=== PATIENT | male | born 1940 | race Caucasian/White ===

== ENCOUNTER 2021-07-21 16:42 | Inpatient (IN) | payer MEDICARE, OTHER ==
[~2021-07-21] VITALS: Ht 182.9 cm; Wt 81.6 kg
--- NOTE | 2021-07-21 17:12 | NUR ---
PT BIB FROM [facility] PRIOR TO GPS ADMISSION DUE TO AGITATION/AGGRESSIVENESS. PT A/OX2 WITH SOME CONFUSION. AT PT'S BEDSIDE. SAFETY MEASURES IN PLACE. PT COMPLIANT WITH CARE AT THIS TIME. CONNECTED PT TO POX AND MONITOR.
[2021-07-21 17:43] LABS: BASOPHILS % (AUTO) 0.4 % (0.0-2.0); EOSINOPHILS % (AUTO) 1.6 % (0.0-6.0); HEMATOCRIT 41 % (39-51); HEMOGLOBIN 13.6 g/dL (13.5-17.5); LYMPHOCYTES # (AUTO) 2.1 K/uL (0.8-4.8); MEAN CORPUSCULAR HGB CONC 33 g/dl (31.0-36.0); MEAN CORPUSCULAR VOLUME 94 fL (80-96); MONOCYTES # (AUTO) 0.9 K/uL (0.1-1.30); MONOCYTES % (AUTO) 8.7 % (2.0-12.0); NEUTROPHILS # (AUTO) 7.2 K/uL (1.8-8.9); NEUTROPHILS % (AUTO) 69.3 % (43.0-81.0); PLATELET COUNT (AUTO) 166 K/uL (150-450); RED BLOOD CELL COUNT(AUTO) 4.42 MIL/uL (4.5-6.0); WHITE BLOOD COUNT (AUTO) 10.4 K/uL (4.3-11.0)
[2021-07-21 18:03] LABS: ALANINE AMINOTRANSFERASE 41 U/L (12-78); ALBUMIN 4.3 g/dL (3.4-5.0); ALCOHOL, BLOOD < 3 mg/dL (0-0); ALKALINE PHOSPHATASE 85 U/L (46-116); ASPARTATE AMINOTRANSFERASE 30 U/L (15-37); BILIRUBIN,DIRECT 0.2 mg/dL (0.0-0.2); BILIRUBIN,TOTAL 0.6 mg/dL (0.2-1.0); CALCIUM, SERUM 9.4 mg/dL (8.5-10.1); CARBON DIOXIDE 28 mmol/L (21-32); CHLORIDE 104 mmol/L (98-107); CREATININE 1.6 mg/dL (0.6-1.3); GLUCOSE 103 mg/dL (74-106); SODIUM SERUM 142 mmol/L (136-145); TOTAL PROTEIN, SERUM 7.9 g/dL (6.4-8.2); UREA NITROGEN, BLOOD 30 mg/dL (7-18)
[2021-07-21 18:07] LABS: ACETAMINOPHEN < 2 ug/ml (10-30)
--- NOTE | 2021-07-21 18:09 | NUR ---
URINE COLLECTED AND SENT TO LAB
[2021-07-21 18:18] LABS: BILIRUBIN,URINE SMALL (NEGATIVE); COLOR,URINE YELLOW (YELLOW); LEUKOCYTE ESTERASE ,URINE Negative (NEGATIVE); NITRITE, URINE Negative (NEGATIVE); PH,URINE 5.5 (5.0-8.0); PROTEIN,URINE Trace mg/dl (NEGATIVE); UGLUCOSE Negative (NEGATIVE)
[2021-07-21 18:20] LABS: BACTERIA,URINE Rare /HPF (None Seen); SQUAMOUS EPITHELIAL CELL,UR Few /HPF (None Seen); WBC,URINE NONE SEEN /HPF (0-3)
--- NOTE | 2021-07-21 18:44 | NUR ---
RIGO CALLED ETA 15 MINS.
[2021-07-21] MEDS ORDERED: SIMV-46 PO (18:59)
[2021-07-21] MEDS ORDERED: GALA24CA PO (18:59)
[2021-07-21] MEDS ORDERED: MULT-594 PO (18:59)
[2021-07-21] MEDS ORDERED: ASPI-1420 PO (18:59)
[2021-07-21] MEDS ORDERED: ESCI10TA PO (18:59)
[2021-07-21] MEDS ORDERED: LEVE500T9 PO (18:59)
[2021-07-21] MEDS ORDERED: LORA-259 PO (18:59)
[2021-07-21] MEDS ORDERED: FISH1CAP16 PO (18:59)
[2021-07-21] MEDS ORDERED: CHOL100062 PO (18:59)
[2021-07-21] MEDS ORDERED: MEMA28CA5 PO (18:59)
--- NOTE | 2021-07-21 19:26 | NUR ---
5150: Patient will be admitted to GPS for acute inpatient psychiatric treatment under the care of Dr. Nino on a 5150 as GD WRITTEN BY RIGO TYLER
--- NOTE | 2021-07-21 19:46 | NUR ---
COVID SWAB SENT TO LAB GPS BED 217
--- NOTE | 2021-07-21 19:49 | NUR ---
COVID SWAB RUNNING, PER LAB
--- NOTE | 2021-07-21 20:08 | NUR ---
ASSIGNED TO GPS 217
--- NOTE | 2021-07-21 20:18 | NUR ---
REPORT GIVEN TO ARACELI GOMEZ FOR [facility]
--- NOTE | 2021-07-21 21:08 | NUR ---
PT TRANSFERRED TO GPS PER HOSPITAL PROTOCOL; SAFETY MEASURES IN PLACE
[2021-07-21] MEDS ORDERED: MAG HYDROX/AL HYDROX/SIMETH 30 ML UDC PO PRN (21:30)
[2021-07-21] MEDS ORDERED: BLOOD SUGAR DIAGNOSTIC 1 EACH STRIP IN ONE (21:30)
[2021-07-21] MEDS ORDERED: MAGNESIUM HYDROXIDE 30 ML UDC PO PRN (21:30)
[2021-07-21] MEDS: TEMAZEPAM 7.5 MG CAPSULE PO PRN (22:27)
[2021-07-21] MEDS: clonazePAM 0.5 MG TABLET PO PRN (22:58)
[2021-07-22 01:34] VITALS: BP 134/58
--- NOTE | 2021-07-22 04:03 | NUR ---
GPS ADMISSION NOTE, RECEIVED PATIENT FROM [facility] IN [place]. PATIENT ARRIVAL TIME 2111 VIA STRETCHER WITH 2 EMT ESCORTS. PATIENT ADMITTED ON A 5150 HOLD GRAVELY DISABLED. PER HOLD, PATIENT WAS BROUGHT IN BY FROM [facility] IN [place] DUE TO INCREASED CONFUSION AND AGITATION. PATIENT REFUSED TO SIGN PAPERWORK. UPON FACE TO FACE ASSESSMENT, PATIENT APPEARS TO BE DEPRESSED, A BIT TEARFUL, GUARDED. RESPIRATIONS ARE EVEN AND UNLABORED WITH NO SOB NOTED. PATIENT SEEMS TO BE ALERT ORIENTED X1. PATIENT CURRENTLY DENIES ANY SUICIDAL IDEATION AND HOMICIDAL IDEATION AT THIS TIME. PATIENT ADVISED OF HOLD AND PATIENT RIGHTS BOOKLET WAS GIVEN. PATIENT BELONGINGS CHECKED FOR CONTRABAND. SKIN ASSESSMENT COMPLETED WITH PHOTOS TAKEN OF NOTED SKIN ISSUES WITH PATIENT'S CONSENT. PATIENT ORIENTED TO ROOM, THEN LATER PATIENT GOT OUT OF BED APPEARING TO BE CONFUSED SAYING "THE GIRL NEEDS ME" PATIENT BECAME AGITATED AND WAS THREATNENING STAFF. REDIRECTED PATIENT THEN WAS PLACED IN ANGELITO CHAIR. OFFERED PRN MEDICATIONS, WHICH HE TOOK. AFTER PATIENT CALMED DOWN. PATIENT WAS PLACED BACK IN BED TO SLEEP FOR THE REMAINDER OF THE NIGHT. PATIENT EDUCATED ON THE USE OF THE CALL OSORIO. PATIENT BED SIDE RAILS UP X2 FOR SAFETY. BED LOCKED, LOW, AND WILL CONTINUE TO MONITOR Q 15 MINUTES FOR SAFETY.
[2021-07-22 08:00] VITALS: BP 119/72
[2021-07-22 08:30] LABS: ALANINE AMINOTRANSFERASE 35 U/L (12-78); ALBUMIN 3.6 g/dL (3.4-5.0); ALKALINE PHOSPHATASE 75 U/L (46-116); ASPARTATE AMINOTRANSFERASE 24 U/L (15-37); BILIRUBIN,TOTAL 0.6 mg/dL (0.2-1.0); CALCIUM, SERUM 8.6 mg/dL (8.5-10.1); CARBON DIOXIDE 27 mmol/L (21-32); CHLORIDE 106 mmol/L (98-107); CREATININE 1.4 mg/dL (0.6-1.3); GLUCOSE 92 mg/dL (74-106); POTASSIUM 3.7 mmol/L (3.5-5.1); SODIUM SERUM 140 mmol/L (136-145); TOTAL PROTEIN, SERUM 6.7 g/dL (6.4-8.2); UREA NITROGEN, BLOOD 28 mg/dL (7-18)
[2021-07-22 08:50] LABS: CHOLESTEROL 139 mg/dL (<200); HDL CHOLESTEROL 51 mg/dL (40-60); LDL 70 mg/dL (0-99); TRIGLYCERIDES 101 mg/dL (30-150)
--- NOTE | 2021-07-22 09:06 | NUR ---
TONY Family Contact: SW attempted to contact patient's Rekha ([phone]) to gather collateral, unavailable, SW left a voicemail.
--- NOTE | 2021-07-22 09:06 | NUR ---
[facility]: SW spoke with Nilam TYLER from [facility] ([phone]) who stated pt is welcomed back once stable.
--- NOTE | 2021-07-22 09:06 | NUR ---
TONY Initial Discharge Plan: Patient currently resides at [facility]. TONY attempted to contact patient's Rekha ([phone]) to gather collateral, unavailable, SW left a voicemail. TONY spoke with Nilam TYLER from [facility] ([phone]) who stated pt is welcomed back once stable. TONY will work with the treatment team and family to coordinate appropriate treatment.
[2021-07-22] MEDS: QUETIAPINE FUMARATE 25 MG TABLET PO SCH ×2 (09:12→17:10)
[2021-07-22] MEDS: ESCITALOPRAM OXALATE (10 MG) 10 MG TABLET PO SCH (09:13)
[2021-07-22] MEDS: MEMANTINE HCL 5 MG TABLET PO SCH ×2 (09:13→17:10)
--- NOTE | 2021-07-22 11:58 | NUR ---
TONY Family Contact: TONY spoke with patient's Rekha ([phone]) and gathered collateral. expressed that pt has been diagnosed with Alzheimer for 5 years. She expressed that she is the DPOA and will send this literary writer documents. wants pt back to [place] upon dc.
[2021-07-22] MEDS ORDERED: HOME MED MISCELLANEOUS XX SCH ×2 (12:00→17:30)
[2021-07-22] MEDS: clonazePAM 0.5 MG TABLET PO PRN ×2 (12:34→20:33)
--- NOTE | 2021-07-22 12:35 | NUR ---
RN-NOTES NOTED PATIENT VERY ANXIOUS ,AGITATED REDIRECTED BUT PATIENT SWING HIS RIGHT HAND TO THE CELLULAR EQUIPMENT INSTALLER. KLONOPIN 0.25MG P.O GIVEN PRN ORDER. WILL CONT.MONITORING FOR SAFETY AND BEHAVIOR. ALL NEEDS ATTENDED AND ANTICIPATED.
[2021-07-22] MEDS: LEVETIRACETAM (250 MG) 250 MG TABLET PO SCH (12:45)
--- NOTE | 2021-07-22 13:08 | NUR ---
TONY Note: Patient's Rekha sent this property underwriter list of meds, SW placed in chart. Medication List (December 2020) Levetiracetam ER (Keppra XR) - 750 mg/day Escitalopram (Lexapro) - 30mg/day Simvastatin (Zocor) - 20mg/day Namenda XR - 28mg/day Galantamine ER (Razadyne ER) - 24mg/day Aspirin - 81mg/day Multi-Vitamin (Mens Senior) - 1/day Vitamin D3 - 2000iu/day Fish Oil - 1000mg/day Occasionally (As Needed) Tylenol Tash -12 hr Mucinex - 12hr Zicam (Zinc Lozenges) Anti-itch Cream - (topical dry skin treatment)
--- NOTE | 2021-07-22 14:33 | NUR ---
SW Note: SW met with patient to conduct therapy due to pt being tearful and sad. Pt appeared to be very confused and disorganized. Pt appeared frightful and stated "people are after him". SW attempted to comfort pt and pt appeared to be more cooperative and felt safe.
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
[2021-07-22] MEDS ORDERED: diphenhydrAMINE HCL 50 MG/ML VIAL IM ONE (15:30)
[2021-07-22] MEDS ORDERED: HALOPERIDOL LACTATE INJ 5 MG/ML VIAL IM ONE (15:30)
--- NOTE | 2021-07-22 15:56 | NUR ---
DPOA Document: Patient's Rekha ([phone]) sent DPOA documents to this SW. SW placed in the chart.
[2021-07-22 16:00] VITALS: BP 132/70
[2021-07-22] MEDS: SIMVASTATIN 20 MG TABLET PO SCH (17:12)
[2021-07-22] MEDS: GALANTAMINE HYDROBROMIDE 4 MG TABLET PO SCH (18:48)
[2021-07-22] MEDS: TEMAZEPAM 7.5 MG CAPSULE PO PRN (20:33)
[2021-07-22 21:01] VITALS: BP 137/78
[2021-07-23 08:00] VITALS: BP 137/74
[2021-07-23] MEDS: DIVALPROEX SODIUM 125 MG CAP.SPRINK PO SCH ×2 (10:02→20:46)
[2021-07-23] MEDS: ASPIRIN EC 81 MG TABLET.DR PO SCH (10:03)
[2021-07-23] MEDS: CHOLECALCIFEROL 1,000 UNIT TABLET (VIT D3) PO SCH (10:03)
[2021-07-23] MEDS: MULTIVITAMINS,THERAGRAN 1 UDTAB TABLET PO SCH (10:03)
[2021-07-23] MEDS: MEMANTINE HCL 5 MG TABLET PO SCH ×2 (10:03→16:23)
[2021-07-23] MEDS: LEVETIRACETAM (250 MG) 250 MG TABLET PO SCH (10:03)
[2021-07-23] MEDS: ESCITALOPRAM OXALATE (10 MG) 10 MG TABLET PO SCH (10:03)
[2021-07-23] MEDS: QUETIAPINE FUMARATE 25 MG TABLET PO SCH ×2 (10:04→16:23)
[2021-07-23] MEDS: GALANTAMINE HYDROBROMIDE 4 MG TABLET PO SCH ×2 (10:04→16:23)
[2021-07-23] MEDS: clonazePAM 0.5 MG TABLET PO PRN (14:54)
--- NOTE | 2021-07-23 14:55 | NUR ---
RN-NOTES NOTED PATIENT VERY ANXIOUS TRYING TO OPEN MAIN DOOR OF THE UNIT. REDIRECTED AND REORIENTED, KLONOPIN 0.25MG P.O GIVEN PRN ORDER. WILL CONT.MONITORING FOR SAFETY AND BEHAVIOR. ALL NEEDS ATTENDED AND ANTICIPATED.
--- NOTE | 2021-07-23 15:55 | NUR ---
RN-NOTES PATIENT STILL IN THE DAY ROOM SITTING IN THE CHAIR,CALM,NO ACUTE DISTRESS NOTED.
[2021-07-23 16:00] VITALS: BP 102/72
[2021-07-23] MEDS: SIMVASTATIN 20 MG TABLET PO SCH (17:34)
[2021-07-23 20:00] VITALS: BP 137/85
[2021-07-23 20:48] VITALS: BP 137/85
--- NOTE | 2021-07-24 06:20 | NUR ---
RN CLOSING NOTE PATIENT AWAKE IN ROOM, BREATHING EVENLY AND UNLABORED, NO S/S OF DISTRESS OR SOB NOTED. PATIENT SLEPT WELL THROUGH THE NIGHT, NO SIGNIFICANT CHANGES AND NO BEHAVIORAL ISSUES NOTED. PATIENT WAS TEARFUL AT THE BEGINNING OF SHIFT, STATED HE WAS WAITING FOR HIS DAD BECAUSE HE HADN'T COME TO SEE HIM IN WEEKS. PT WAS REDIRECTABLE AND WENT TO SLEEP. PT WAS MED COMPLIANT, MEDICATIONS GIVEN ORDERED AND PATIENT NEEDS MET THROUGHOUT SHIFT. ENCOURAGED PO HYDRATION AND GAVE PATIENT SNACK. PT VERY CONFUSED THIS MORNING, KEPT ASKING HOW HE COULD GO DOWNSTAIRS AND LEAVE EVEN AFTER REORIENTING AND EXPLAINING THE SITUATION TO PATIENT. SAFETY MEASURES IN PLACE: BED LOCKED IN LOW POSITION, SIDE RAILS UP X 2, Q15 MIN CHECKS FOR SAFETY. WILL ENDORSE TO DAY SHIFT NURSE FOR CONTINUITY OF CARE.
[2021-07-24 08:00] VITALS: BP 130/74
--- NOTE | 2021-07-24 09:03 | NUR ---
Pt. is very aggressive, screaming and yelling to staffs, fighting and posturing to the staffs. Jasbir CH made aware and ordered Haldol 2 mg IM and Benadryl 25 mg IM.
[2021-07-24] MEDS ORDERED: HALOPERIDOL LACTATE INJ 5 MG/ML VIAL IM ONE ×2 (09:30→19:00)
[2021-07-24] MEDS ORDERED: diphenhydrAMINE HCL 50 MG/ML VIAL IM ONE ×2 (09:30→19:00)
[2021-07-24] MEDS: LEVETIRACETAM (250 MG) 250 MG TABLET PO SCH (09:43)
[2021-07-24] MEDS: DIVALPROEX SODIUM 125 MG CAP.SPRINK PO SCH ×2 (09:43→21:58)
[2021-07-24] MEDS: ESCITALOPRAM OXALATE (10 MG) 10 MG TABLET PO SCH (09:44)
[2021-07-24] MEDS: CHOLECALCIFEROL 1,000 UNIT TABLET (VIT D3) PO SCH (09:44)
[2021-07-24] MEDS: ASPIRIN EC 81 MG TABLET.DR PO SCH (09:44)
[2021-07-24] MEDS: MULTIVITAMINS,THERAGRAN 1 UDTAB TABLET PO SCH (09:44)
[2021-07-24] MEDS: MEMANTINE HCL 5 MG TABLET PO SCH ×2 (09:44→16:25)
[2021-07-24] MEDS: GALANTAMINE HYDROBROMIDE 4 MG TABLET PO SCH ×2 (09:44→16:25)
[2021-07-24] MEDS: QUETIAPINE FUMARATE 25 MG TABLET PO SCH ×2 (09:44→16:25)
[2021-07-24] MEDS: ACETAMINOPHEN 325 MG TABLET PO PRN (11:18)
--- NOTE | 2021-07-24 11:18 | NUR ---
RN-NOTES PATIENT C/O LOWER BACK PAIN. TYLENOL 650MG P.O GIVEN PRN ORDER. WILL CONT. MONITORING FOR SAFETY AND BEHAVIOR.
--- NOTE | 2021-07-24 11:30 | NUR ---
RN-NOTES PATIENT'S JAMIA CHA [phone] MADE AWARE OF PATIENT'S BEHAVIOR AND THAT IM MEDICATIONS WAS GIVEN.
[2021-07-24 11:51] LABS: CARBON DIOXIDE 27 mmol/L (21-32); CHLORIDE 103 mmol/L (98-107); CREATININE 1.6 mg/dL (0.6-1.3); GLUCOSE 93 mg/dL (74-106); POTASSIUM 3.7 mmol/L (3.5-5.1); SODIUM SERUM 140 mmol/L (136-145); UREA NITROGEN, BLOOD 29 mg/dL (7-18)
[2021-07-24 16:00] VITALS: BP 144/79
[2021-07-24] MEDS: SIMVASTATIN 20 MG TABLET PO SCH (17:16)
[2021-07-24] MEDS ORDERED: LORAZEPAM INJ 2 MG/ML VIAL IM ONE (19:00)
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
--- NOTE | 2021-07-24 19:15 | NUR ---
RECEIVED PATIENT IN HALLWAY SITTING IN ANGELITO CHAIR, AWAKE A/O X1. BLUNTED AFFECT, BANGING ON CHAIR, YELLING, AGITATED, DISORGANIZED, CONFUSED, REFUSING REDIRECTION. POOR INSIGHT, POOR JUDGEMENT. IM ATIVAN 0.5ML, BENADRYL 25ML AND HALDOL 5ML GIVEN BY AM NURSE. WILL CONTINUE TO MONITOR Q15 MIN FOR MOOD, SAFETY AND BEHAVIOR.
--- NOTE | 2021-07-24 19:36 | NUR ---
RN-NOTES PATIENT IN THE DAY ROOM UP IN THE CHAIR WITH TABLE,AWAKE,ALERT TO NAME ONLY,GUARDED,CALM AND QUIET. NO ACUTE DISTRESS NOTED. ENDORSED TO INCOMING NURSE FOR MONITORING AND CONTINUITY OF CARE.
[2021-07-24 20:12] VITALS: BP 147/79
--- NOTE | 2021-07-24 21:02 | NUR ---
GPS RN NOTES: PATIENT IS SITTING IN ANGELITO CHAIR IN DAY ROOM, AWAKE, A/O X1, CALM AND COOPERATIVE, ABLE TO FOLLOW COMMAND AND NO LONGER AGITATED OR AGGRESSIVE. V/S WNL. NO S/S OF RESPIRATORY DISTRESS. OFFERED SNACKS AND FLUID TOLERATED. WILL CONTINUE TO MONITOR.
[2021-07-25 07:35] LABS: CALCIUM, SERUM 8.5 mg/dL (8.5-10.1); CARBON DIOXIDE 29 mmol/L (21-32); CHLORIDE 105 mmol/L (98-107); CREATININE 1.5 mg/dL (0.6-1.3); GLUCOSE 92 mg/dL (74-106); POTASSIUM 3.9 mmol/L (3.5-5.1); SODIUM SERUM 140 mmol/L (136-145); UREA NITROGEN, BLOOD 29 mg/dL (7-18)
[2021-07-25 08:00] VITALS: BP 112/57
[2021-07-25] MEDS: CHOLECALCIFEROL 1,000 UNIT TABLET (VIT D3) PO SCH (08:36)
[2021-07-25] MEDS: MULTIVITAMINS,THERAGRAN 1 UDTAB TABLET PO SCH (08:37)
[2021-07-25] MEDS: GALANTAMINE HYDROBROMIDE 4 MG TABLET PO SCH ×2 (08:37→17:19)
[2021-07-25] MEDS: ESCITALOPRAM OXALATE (10 MG) 10 MG TABLET PO SCH (08:37)
[2021-07-25] MEDS: ASPIRIN EC 81 MG TABLET.DR PO SCH (08:37)
[2021-07-25] MEDS: LEVETIRACETAM (250 MG) 250 MG TABLET PO SCH (08:37)
[2021-07-25] MEDS: QUETIAPINE FUMARATE 25 MG TABLET PO SCH ×2 (08:38→17:20)
[2021-07-25] MEDS: DIVALPROEX SODIUM 125 MG CAP.SPRINK PO SCH ×2 (08:38→21:07)
[2021-07-25] MEDS: MEMANTINE HCL 5 MG TABLET PO SCH ×2 (08:38→17:21)
[2021-07-25 10:38] LABS: BASOPHILS % (AUTO) 0.3 % (0.0-2.0); HEMATOCRIT 36 % (39-51); LYMPHOCYTES % (AUTO) 30.1 % (20.0-44.0); MEAN CORPUSCULAR HGB CONC 34 g/dl (31.0-36.0); MEAN CORPUSCULAR VOLUME 92 fL (80-96); MONOCYTES # (AUTO) 0.8 K/uL (0.1-1.30); MONOCYTES % (AUTO) 11.1 % (2.0-12.0); NEUTROPHILS # (AUTO) 3.7 K/uL (1.8-8.9); NEUTROPHILS % (AUTO) 54.5 % (43.0-81.0); PLATELET COUNT (AUTO) 134 K/uL (150-450); RED BLOOD CELL COUNT(AUTO) 3.84 MIL/uL (4.5-6.0); WHITE BLOOD COUNT (AUTO) 6.8 K/uL (4.3-11.0)
[2021-07-25 16:00] VITALS: BP 132/78
[2021-07-25] MEDS: SIMVASTATIN 20 MG TABLET PO SCH (17:20)
[2021-07-25 20:11] VITALS: BP 101/70
[2021-07-25] MEDS: TEMAZEPAM 7.5 MG CAPSULE PO PRN (21:07)
[2021-07-26 08:00] VITALS: BP 146/91
[2021-07-26] MEDS: clonazePAM 0.5 MG TABLET PO PRN (08:08)
[2021-07-26] MEDS: MULTIVITAMINS,THERAGRAN 1 UDTAB TABLET PO SCH (08:09)
[2021-07-26] MEDS: CHOLECALCIFEROL 1,000 UNIT TABLET (VIT D3) PO SCH (08:09)
[2021-07-26] MEDS: LEVETIRACETAM (250 MG) 250 MG TABLET PO SCH (08:09)
[2021-07-26] MEDS: DIVALPROEX SODIUM 125 MG CAP.SPRINK PO SCH ×2 (08:09→20:43)
[2021-07-26] MEDS: ESCITALOPRAM OXALATE (10 MG) 10 MG TABLET PO SCH (08:09)
[2021-07-26] MEDS: ASPIRIN EC 81 MG TABLET.DR PO SCH (08:09)
[2021-07-26] MEDS: QUETIAPINE FUMARATE 25 MG TABLET PO SCH ×2 (08:09→17:15)
[2021-07-26] MEDS: GALANTAMINE HYDROBROMIDE 4 MG TABLET PO SCH ×2 (08:10→17:15)
[2021-07-26] MEDS: MEMANTINE HCL 5 MG TABLET PO SCH ×2 (08:10→17:15)
--- NOTE | 2021-07-26 08:10 | NUR ---
RN-CO: KLONOPIN 0.25 MG PO GIVEN FOR RESTLESSNESS AND ANXIETY.
[2021-07-26 16:00] VITALS: BP 139/87
[2021-07-26] MEDS: SIMVASTATIN 20 MG TABLET PO SCH (17:15)
--- NOTE | 2021-07-26 17:48 | NUR ---
RN-CO: Patient failed to provide urine specimen. I will endorse to the next shift.
[2021-07-26 19:51] VITALS: BP 105/63
[2021-07-26] MEDS: ACETAMINOPHEN 325 MG TABLET PO PRN (20:45)
--- NOTE | 2021-07-26 20:52 | NUR ---
GPS RN NOTES: TYLENOL 650MG GIVEN PO FOR LOWER BACK PAIN AT 2044. WILL CONTINUE TO MONITOR
[2021-07-26] MEDS: TEMAZEPAM 7.5 MG CAPSULE PO PRN (21:27)
--- NOTE | 2021-07-26 21:27 | NUR ---
GPS RN NOTES: RESTORIL 7.5MG/1CAP GIVEN PO AT 2126. WILL CONTINUE TO MONITOR.
--- NOTE | 2021-07-27 07:10 | NUR ---
GPS RN NOTES: WEEKLY SKIN ASSESSMENT DONE. PATIENT HAD NEW SKIN ISSUES: SACRAL REDNESS, OLD R/L LOWER ARM SCABS AND BRUISES. WOUND CONSULT ORDERED, PICTURES TAKEN AND PLACED IN PATIENT CHART.
[2021-07-27 08:00] VITALS: BP 129/68
[2021-07-27] MEDS: GALANTAMINE HYDROBROMIDE 4 MG TABLET PO SCH ×2 (08:51→16:34)
[2021-07-27] MEDS: CHOLECALCIFEROL 1,000 UNIT TABLET (VIT D3) PO SCH (08:52)
[2021-07-27] MEDS: LEVETIRACETAM (250 MG) 250 MG TABLET PO SCH (08:52)
[2021-07-27] MEDS: DIVALPROEX SODIUM 125 MG CAP.SPRINK PO SCH ×2 (08:52→21:10)
[2021-07-27] MEDS: MEMANTINE HCL 5 MG TABLET PO SCH ×2 (08:53→16:34)
[2021-07-27] MEDS: ASPIRIN EC 81 MG TABLET.DR PO SCH (08:53)
[2021-07-27] MEDS: ESCITALOPRAM OXALATE (10 MG) 10 MG TABLET PO SCH (08:53)
[2021-07-27] MEDS: MULTIVITAMINS,THERAGRAN 1 UDTAB TABLET PO SCH (08:53)
[2021-07-27] MEDS: QUETIAPINE FUMARATE 25 MG TABLET PO SCH ×2 (08:54→21:10)
[2021-07-27 16:00] VITALS: BP 110/60
[2021-07-27] MEDS: SIMVASTATIN 20 MG TABLET PO SCH (17:00)
--- NOTE | 2021-07-27 17:19 | NUR ---
PT. UNCOOPERATIVE, UNABLE TO DO CT SCAN OF THE HEAD. JAYSON CURRAN IS AWARE.
--- NOTE | 2021-07-27 17:25 | NUR ---
AT APPROXIMATELY 1646 PM, THE PT WAS FOUND BY THE MANUFACTURING BAKER AND RN SITTING DOWN ON THE FLOOR WITH HIS HANDS ON THE FLOOR AND WITH HIS BACK AND HEAD LEANING AGAINST THE TABLE . NO SIGNS OF DISTRESS, NO BLEEDING OR INJURY NOTED. PT REGAINED GAIT AND WAS PLACED IN CHAIR. STAT CT SCAN OF THE HEAD WAS ORDERED BY DNP. PT UNCOOPERATIVE IN RADIOLOGY ROOM. UNABLE TO DO CT SCAN. DNP AND CHARGE NURSE AWARE. PER DNP, OBSERVE PT FOR SIGNS AND SYMPTOMS OF BLEEDING, CONFUSION AND ENCEPHALOPATHY. STIPPLER AND TIMEKEEPER AWARE OF THE FALL. VS STABLE BP128/77 HR 99
--- NOTE | 2021-07-27 18:27 | NUR ---
FAMILY AT GPS UNIT INFORMED OF STATUS AND FALL.
[2021-07-27] MEDS: clonazePAM 0.5 MG TABLET PO PRN (18:30)
[2021-07-27 20:23] VITALS: BP 127/56
[2021-07-27 20:34] LABS: BILIRUBIN,URINE NEGATIVE (NEGATIVE); COLOR,URINE YELLOW (YELLOW); LEUKOCYTE ESTERASE ,URINE NEGATIVE (NEGATIVE); NITRITE, URINE NEGATIVE (NEGATIVE); PROTEIN,URINE NEGATIVE (NEGATIVE); UGLUCOSE NEGATIVE (NEGATIVE); UROBILINOGEN,URINE 0.2 EU/dL (0.2)
[2021-07-27 20:47] LABS: BACTERIA,URINE RARE /HPF (None Seen); MUCUS,URINE Few /LPF (None Seen); SQUAMOUS EPITHELIAL CELL,UR 0-2 /HPF (None Seen); WBC,URINE 0-2 /HPF (0-3)
[2021-07-27] MEDS: TEMAZEPAM 7.5 MG CAPSULE PO PRN (21:20)
--- NOTE | 2021-07-27 21:20 | NUR ---
GPS JAYSON NOTE PT IN G/C UNABLE TO GO TO SLEEP, RESTORIL 25 MG PO GIVEN. CONTINUE TO MONITOR HIM. Addendum: 07/28/21 at 0536 by FERNANDO KINGSTON RN DUPILACATE ENTRY
--- NOTE | 2021-07-27 21:20 | NUR ---
GPS RN NOTE PT IN G/C RESTLESS, AND UNABLE TO SLEEP, RETORIL 7.5 MG PO GIVEN. CONTINUE TO MONITOR HIM.
--- NOTE | 2021-07-27 22:20 | NUR ---
GPS RN NOTE PT UNABLE TO GO TL SLEEP, HYDRATED HIM, SNACKS GIVEN. CONTINUE TO MONITOR
[2021-07-28 08:00] VITALS: BP 131/68
[2021-07-28] MEDS: ESCITALOPRAM OXALATE (10 MG) 10 MG TABLET PO SCH (09:02)
[2021-07-28] MEDS: QUETIAPINE FUMARATE 25 MG TABLET PO SCH ×2 (09:02→21:25)
[2021-07-28] MEDS: clonazePAM 0.5 MG TABLET PO PRN ×2 (09:02→14:29)
--- NOTE | 2021-07-28 09:02 | NUR ---
PATIENT AGITATED MEDICATED WITH KLONOPIN 0.25MG WILL CONTINUE TO MONITOR .
[2021-07-28] MEDS: GALANTAMINE HYDROBROMIDE 4 MG TABLET PO SCH ×2 (09:03→17:32)
[2021-07-28] MEDS: DIVALPROEX SODIUM 125 MG CAP.SPRINK PO SCH (09:03)
[2021-07-28] MEDS: MULTIVITAMINS,THERAGRAN 1 UDTAB TABLET PO SCH (09:03)
[2021-07-28] MEDS: CHOLECALCIFEROL 1,000 UNIT TABLET (VIT D3) PO SCH (09:03)
[2021-07-28] MEDS: MEMANTINE HCL 5 MG TABLET PO SCH ×2 (09:03→17:32)
[2021-07-28] MEDS: ASPIRIN EC 81 MG TABLET.DR PO SCH (09:03)
[2021-07-28] MEDS: LEVETIRACETAM (250 MG) 250 MG TABLET PO SCH (09:04)
--- NOTE | 2021-07-28 09:53 | NUR ---
CALLED FOR PATIENT FPR CT SCAN, PATIENT TOO AGITATED, FLOOR WILL CALL WHEN READY
--- NOTE | 2021-07-28 13:58 | NUR ---
Court Hearing: Patient's court hearing for 2670 was today and it was upheld for GD and danger to others.
--- NOTE | 2021-07-28 14:29 | NUR ---
PATIENT AGITATED MEDICATED WITH KLONOPIN 0.25MG WILL CONTINUE TO MONITOR .
[2021-07-28 16:06] VITALS: BP 136/59
[2021-07-28] MEDS: DIVALPROEX SODIUM 250 MG TABLET.DR PO SCH (17:32)
[2021-07-28] MEDS: SIMVASTATIN 20 MG TABLET PO SCH (18:33)
--- NOTE | 2021-07-28 20:50 | NUR ---
RN NOTE: REFUSED VITALS PATIENT REFUSED VITALS X 3, EASILY RESTLESS, WANTS TO SLEEP & NOT TO BE BOTHERED. NO ACUTE CHANGES NOTED. WILL CONTINUE TO MONITOR FOR ANY CHANGE OF CONDITION.
[2021-07-29] MEDS: Z GUARD REMEDY 2 OZ OINT TP PRN ×2 (06:38→21:37)
--- NOTE | 2021-07-29 06:56 | NUR ---
RN NOTE PATIENT SLEPT WELL AT NIGHT. NO BEHAVIOR EPISODES NOTED THROUGHOUT THE SHIFT. REDIRECTABLE.
[2021-07-29 08:00] VITALS: BP 118/56
[2021-07-29] MEDS: Z GUARD REMEDY 2 OZ OINT TP SCH (08:33)
[2021-07-29] MEDS: ESCITALOPRAM OXALATE (10 MG) 10 MG TABLET PO SCH (08:42)
[2021-07-29] MEDS: MEMANTINE HCL 5 MG TABLET PO SCH ×2 (08:42→17:38)
[2021-07-29] MEDS: LEVETIRACETAM (250 MG) 250 MG TABLET PO SCH (08:42)
[2021-07-29] MEDS: CHOLECALCIFEROL 1,000 UNIT TABLET (VIT D3) PO SCH (08:42)
[2021-07-29] MEDS: ASPIRIN EC 81 MG TABLET.DR PO SCH (08:42)
[2021-07-29] MEDS: DIVALPROEX SODIUM 250 MG TABLET.DR PO SCH ×2 (08:43→17:37)
[2021-07-29] MEDS: QUETIAPINE FUMARATE 25 MG TABLET PO SCH ×2 (08:44→22:11)
[2021-07-29] MEDS: MULTIVITAMINS,THERAGRAN 1 UDTAB TABLET PO SCH (08:45)
[2021-07-29] MEDS: GALANTAMINE HYDROBROMIDE 4 MG TABLET PO SCH ×2 (09:17→17:37)
--- NOTE | 2021-07-29 10:25 | NUR ---
WOUND CARE CONSULT: PT SEEN FOR OPEN SKIN ON LEFT GREAT TOE, PRESENT ON ADMISSION. DR ISAAC NOTIFIED OF DPM CONSULT REQUEST. IN AGREEMENT WITH PLAN OF CARE.
[2021-07-29] MEDS: clonazePAM 0.5 MG TABLET PO PRN ×2 (14:50→20:52)
--- NOTE | 2021-07-29 14:51 | NUR ---
PATIENT AGITATED MEDICATED WITH KLONOPIN 0.25MG WILL CONTINUE TO MONITOR .
[2021-07-29 16:00] VITALS: BP 134/81
[2021-07-29] MEDS: SIMVASTATIN 20 MG TABLET PO SCH (17:37)
--- NOTE | 2021-07-29 19:31 | NUR ---
RN NOTE PATIENT IS UP IN A ANGELITO CHAIR IN THE HALLWAY, VISITING THE PATIENT AT THIS TIME. OFFERED CUP OF WATER TO THE PATIENT, IS ASSISTING AND REDIRECTING THE PATIENT TO FINISH DRINKING WATER. NO ACUTE CHANGES NOTED. WILL CONTINUE TO MONITOR.
[2021-07-29 20:00] VITALS: BP 114/71
[2021-07-29 20:29] VITALS: BP 114/71
--- NOTE | 2021-07-29 20:53 | NUR ---
RN NOTE: ANXIETY PATIENT IS ANXIOUS, RESTLESS AND AGITATED. PRN KLONOPIN 0.25 MG PO ADMINISTERED ORDERED. WILL MONITOR CLOSELY FOR ANY CHANGE OF CONDITION.
[2021-07-30 08:00] VITALS: BP 125/76
[2021-07-30] MEDS: GALANTAMINE HYDROBROMIDE 4 MG TABLET PO SCH ×2 (09:07→16:49)
[2021-07-30] MEDS: DIVALPROEX SODIUM 250 MG TABLET.DR PO SCH ×2 (09:07→16:37)
[2021-07-30] MEDS: MEMANTINE HCL 5 MG TABLET PO SCH ×2 (09:07→16:37)
[2021-07-30] MEDS: QUETIAPINE FUMARATE 25 MG TABLET PO SCH ×2 (09:08→21:28)
[2021-07-30] MEDS: ASPIRIN EC 81 MG TABLET.DR PO SCH (09:08)
[2021-07-30] MEDS: CHOLECALCIFEROL 1,000 UNIT TABLET (VIT D3) PO SCH (09:08)
[2021-07-30] MEDS: LEVETIRACETAM (250 MG) 250 MG TABLET PO SCH (09:08)
[2021-07-30] MEDS: ESCITALOPRAM OXALATE (10 MG) 10 MG TABLET PO SCH (09:08)
[2021-07-30] MEDS: Z GUARD REMEDY 2 OZ OINT TP SCH (09:38)
[2021-07-30] MEDS: MULTIVITAMINS,THERAGRAN 1 UDTAB TABLET PO SCH (09:43)
[2021-07-30] MEDS: clonazePAM 0.5 MG TABLET PO PRN (13:02)
--- NOTE | 2021-07-30 13:07 | NUR ---
RN-NOTES NOTED PATIENT VERY ANXIOUS,SCREAMING AND YELLING FOCUS ON GOING HOME. REDIRECTED AND REORIENTED, KLONOPIN 0.25MG P.O GIVEN PRN ORDER. WILL CONT.MONITORING FOR SAFETY AND BEHAVIOR.
--- NOTE | 2021-07-30 14:10 | NUR ---
RN-NOTES PATIENT IN THE DAY ROOM UP IN THE ANGELITO CHAIR, CALM ,NO ACUTE DISTRESS NOTED.
[2021-07-30 16:00] VITALS: BP 137/67
[2021-07-30] MEDS: SIMVASTATIN 20 MG TABLET PO SCH (17:09)
--- NOTE | 2021-07-30 19:15 | NUR ---
RN NOTES: PT. BEHAVIOR ANXIOUS EASILY AGITATED PARANOID UNCOOPERTIVE, CONFUSED DISORGANIZED NON COMPLIANT WITH DIRECTIONS AND PLAN OF CARE . PT. REFUSED TO STAYING IN THE BED ATTEMPTING TO GETING OUT THE BED VERY OFTEN REFUSING TO STAY IN BED , PT. GAIT VERY UNSTEADY AND HIGH FALL RISKS, PT. OBSERVED CLOSELY ALL NEEDS WERE MET, BANGING SIDE RAILS , PT. SKIN IS VERY FRAGILE AND NOTED WITH MULTIPLE SKIN DISCOLORATIONS FROM PREVIOUSLY , PT. REFUSED SKIN ASSESSMENT , ENCOURAGED BUT PT. BEHAVIOR VERY UNCOOERTIVE ,AND STRONGLY REFUSED, WILL CONTINUE WITH PLAN OF CARE.
[2021-07-30 20:00] VITALS: BP 145/79
--- NOTE | 2021-07-31 07:19 | NUR ---
RN NOTES: PT. BEHAVIOR THROUGH OUT SHIFT EASILY AGITED , DISORGNIZED , PT. RESTING HIS ROOM AT THIS TIME ENCOURAGED PO FLUIDS AND SNACKS TOLERTED WITH PLAN OF CARE.
[2021-07-31] MEDS: MULTIVITAMINS,THERAGRAN 1 UDTAB TABLET PO SCH (08:51)
[2021-07-31] MEDS: GALANTAMINE HYDROBROMIDE 4 MG TABLET PO SCH ×2 (08:54→17:28)
[2021-07-31] MEDS: ASPIRIN EC 81 MG TABLET.DR PO SCH (08:54)
[2021-07-31] MEDS: MEMANTINE HCL 5 MG TABLET PO SCH ×2 (08:54→17:28)
[2021-07-31] MEDS: DIVALPROEX SODIUM 250 MG TABLET.DR PO SCH ×2 (08:54→17:28)
[2021-07-31] MEDS: QUETIAPINE FUMARATE 25 MG TABLET PO SCH ×2 (08:54→21:24)
[2021-07-31] MEDS: ESCITALOPRAM OXALATE (10 MG) 10 MG TABLET PO SCH (08:54)
[2021-07-31] MEDS: CHOLECALCIFEROL 1,000 UNIT TABLET (VIT D3) PO SCH (08:54)
[2021-07-31] MEDS: Z GUARD REMEDY 2 OZ OINT TP SCH (08:55)
[2021-07-31] MEDS: LEVETIRACETAM (250 MG) 250 MG TABLET PO SCH (08:55)
--- NOTE | 2021-07-31 14:37 | NUR ---
[facility]: TONY spoke with Nilam campus executive director at [place] ([phone]) and FaceTimed with pt. They are welcoming of taking pt back upon dc. TONY sent updated H & P, progress notes, and medication list.
[2021-07-31 16:00] VITALS: BP 119/73
[2021-07-31] MEDS: SIMVASTATIN 20 MG TABLET PO SCH (17:28)
[2021-07-31 19:56] VITALS: BP 142/78
--- NOTE | 2021-07-31 21:00 | NUR ---
Mr. Street had a female visitor ana cristina he was conversig and smiling during her visit he sit sit in a chair and will grab for the person walkinh by him or thepiece of equipment going by him he is alert but confused taking med he is cooperative
[2021-07-31] MEDS: TEMAZEPAM 7.5 MG CAPSULE PO PRN (22:07)
--- NOTE | 2021-08-01 05:02 | NUR ---
closing notes: friendly and cooperative thru this 12 hours. noted when a nurse walk by him he will attemot to grab her arm, whenwalked by with my computer he attempted to grab the it. sat in the chair until 1AM then placed him in bed alarm on. placed in bed earlier but he got up, alarm sounding off to alert nurse he was oob. 2nd time placed in bed he went to sleep
[2021-08-01 08:00] VITALS: BP 126/60
[2021-08-01] MEDS: DIVALPROEX SODIUM 250 MG TABLET.DR PO SCH ×2 (09:10→16:34)
[2021-08-01] MEDS: ASPIRIN EC 81 MG TABLET.DR PO SCH (09:11)
[2021-08-01] MEDS: MULTIVITAMINS,THERAGRAN 1 UDTAB TABLET PO SCH (09:11)
[2021-08-01] MEDS: QUETIAPINE FUMARATE 25 MG TABLET PO SCH ×2 (09:11→21:06)
[2021-08-01] MEDS: CHOLECALCIFEROL 1,000 UNIT TABLET (VIT D3) PO SCH (09:11)
[2021-08-01] MEDS: LEVETIRACETAM (250 MG) 250 MG TABLET PO SCH (09:11)
[2021-08-01] MEDS: ESCITALOPRAM OXALATE (10 MG) 10 MG TABLET PO SCH (09:11)
[2021-08-01] MEDS: GALANTAMINE HYDROBROMIDE 4 MG TABLET PO SCH ×2 (09:11→16:33)
[2021-08-01] MEDS: MEMANTINE HCL 5 MG TABLET PO SCH ×2 (09:11→16:34)
[2021-08-01] MEDS: Z GUARD REMEDY 2 OZ OINT TP SCH (09:12)
[2021-08-01 16:00] VITALS: BP 147/80
[2021-08-01] MEDS: SIMVASTATIN 20 MG TABLET PO SCH (17:49)
[2021-08-01] MEDS: clonazePAM 0.5 MG TABLET PO PRN (19:52)
--- NOTE | 2021-08-01 19:52 | NUR ---
GPS-RN NOTES: ANXIETY PATIENT IS ANXIOUS AND RESTLESS. PRN KLONOPIN 0.25MG PO GIVEN ORDERED. WILL CONTINUE TO MONITOR FOR PATIENT'S SAFETY.
[2021-08-01 20:18] VITALS: BP 139/87
[2021-08-01] MEDS: TEMAZEPAM 7.5 MG CAPSULE PO PRN (22:10)
--- NOTE | 2021-08-01 22:10 | NUR ---
GPS-RN NOTES: INSOMNIA PATIENT UNABLE TO SLEEP. PRN RESTORIL 7.5MG PO GIVEN ORDERED. WILL CONTINUE TO MONITOR.
[2021-08-02 08:00] VITALS: BP 138/85
--- NOTE | 2021-08-02 08:00 | NUR ---
RN OPENING NOTE RECEIVED PT IN BED RESTING. PT DOES NOT EXHIBIT S/SX OF ACUTE DISTRESS AT THIS TIME.PT IS CONFUSED AND DISORIENTED, REQUIRES CONSTANT REDIRECTION, AND REORIENTATION TO ENVIRONMENT. PT REMAINS UNPREDICTABLE, REQUIRES ENCOURAGEMENT AND ASSISTANCE REGARDING ADLS AND SELF-CARE. PT IS PROVIDED A SAFE AND COMFORTABLE ENVIRONMENT. WILL CONTINUE MONITORING Q15MIN FOR SAFETY AND BEHAVIOR.
[2021-08-02] MEDS: ASPIRIN EC 81 MG TABLET.DR PO SCH (08:17)
[2021-08-02] MEDS: MULTIVITAMINS,THERAGRAN 1 UDTAB TABLET PO SCH (08:18)
[2021-08-02] MEDS: GALANTAMINE HYDROBROMIDE 4 MG TABLET PO SCH ×2 (08:18→17:43)
[2021-08-02] MEDS: Z GUARD REMEDY 2 OZ OINT TP SCH (08:18)
[2021-08-02] MEDS: CHOLECALCIFEROL 1,000 UNIT TABLET (VIT D3) PO SCH (08:18)
[2021-08-02] MEDS: LEVETIRACETAM (250 MG) 250 MG TABLET PO SCH (09:00)
[2021-08-02] MEDS: MEMANTINE HCL 5 MG TABLET PO SCH ×2 (09:14→17:42)
[2021-08-02] MEDS: DIVALPROEX SODIUM 250 MG TABLET.DR PO SCH ×2 (09:14→17:42)
[2021-08-02] MEDS: ESCITALOPRAM OXALATE (10 MG) 10 MG TABLET PO SCH (09:14)
[2021-08-02] MEDS: QUETIAPINE FUMARATE 25 MG TABLET PO SCH ×2 (09:14→21:15)
[2021-08-02 16:00] VITALS: BP 152/78
[2021-08-02] MEDS: SIMVASTATIN 20 MG TABLET PO SCH (17:42)
[2021-08-02] MEDS: clonazePAM 0.5 MG TABLET PO PRN (19:25)
[2021-08-02 19:28] VITALS: BP 125/84
--- NOTE | 2021-08-02 19:33 | NUR ---
GPS-RN NOTES: ANXIETY PATIENT IS ANXIOUS AND RESTLESS. PRN KLONOPIN 0.25MG PO GIVEN ORDERED. WILL CONTINUE TO MONITOR FOR PATIENT'S SAFETY.
[2021-08-02] MEDS: TEMAZEPAM 7.5 MG CAPSULE PO PRN (22:42)
--- NOTE | 2021-08-03 06:45 | NUR ---
GPS-RN NOTES: WEEKLY SKIN BODY ASSESSMENT DONE, NOTED WITH LEFT LATERAL LOWER LEG SKIN DISCOLORATION AND LEFT UPPER ARM BRUISES. PHOTO PLACED IN THE CHART. NO SKIN BREAKDOWN NOTED, SKIN INTACT. WILL CONTINUE TO MONITOR FOR ANY ADVERSE SKIN CHANGES EVERY SHIFT AND PRN. WILL ENDORSE TO AM SHIFT FOR CONTINUITY OF CARE.
[2021-08-03 08:00] VITALS: BP 122/55
[2021-08-03] MEDS: MEMANTINE HCL 5 MG TABLET PO SCH ×2 (08:14→16:20)
[2021-08-03] MEDS: DIVALPROEX SODIUM 250 MG TABLET.DR PO SCH ×2 (08:14→16:19)
[2021-08-03] MEDS: LEVETIRACETAM (250 MG) 250 MG TABLET PO SCH (08:14)
[2021-08-03] MEDS: ASPIRIN EC 81 MG TABLET.DR PO SCH (08:15)
[2021-08-03] MEDS: ESCITALOPRAM OXALATE (10 MG) 10 MG TABLET PO SCH (08:15)
[2021-08-03] MEDS: MULTIVITAMINS,THERAGRAN 1 UDTAB TABLET PO SCH (08:15)
[2021-08-03] MEDS: CHOLECALCIFEROL 1,000 UNIT TABLET (VIT D3) PO SCH (08:15)
[2021-08-03] MEDS: Z GUARD REMEDY 2 OZ OINT TP SCH (08:28)
[2021-08-03] MEDS ORDERED: QUETIAPINE FUMARATE 25 MG TABLET PO SCH (09:00)
--- NOTE | 2021-08-03 09:00 | NUR ---
RN NOTE- PT LABILE AGITATED OPPOSITIONAL TO CARE THOUGH WAS ABLE TO HAVE PT TAKE CRUSHED MEDS THIS MORNING. VS STABLE, REQUIRES REDIRECTION AND REORIENTATION
[2021-08-03] MEDS: GALANTAMINE HYDROBROMIDE 4 MG TABLET PO SCH ×2 (10:03→16:19)
--- NOTE | 2021-08-03 15:57 | NUR ---
SS group note: SW met with pt.in the activity room and invited him to participate in group about: "What they hope will improve after their treatment at [facility]". Pt. is sitting in gerichair. Pt. is confused with euthymic mood. Pt. is not appropriate for group at this time as he is unable to engage in meaningful conversation. SW will monitor pt. and invite pt. to the next group if appropriate.
[2021-08-03 16:00] VITALS: BP 131/66
[2021-08-03] MEDS: SIMVASTATIN 20 MG TABLET PO SCH (17:29)
[2021-08-03 20:02] VITALS: BP 143/58
[2021-08-03] MEDS: clonazePAM 0.5 MG TABLET PO PRN (20:55)
--- NOTE | 2021-08-03 20:56 | NUR ---
GPS-RN NOTES: ANXIETY PATIENT IS VERY ANXIOUS AND AGITATED. PRN KLONOPIN 0.25MG PO GIVEN. WILL CONTINUE TO MONITOR PT'S SAFETY.
[2021-08-03] MEDS: TEMAZEPAM 7.5 MG CAPSULE PO PRN (22:41)
[2021-08-03] MEDS: QUETIAPINE FUMARATE 25 MG TABLET PO SCH (22:41)
[2021-08-04 08:00] VITALS: BP 100/54
[2021-08-04] MEDS: Z GUARD REMEDY 2 OZ OINT TP SCH (08:56)
[2021-08-04] MEDS: DIVALPROEX SODIUM 250 MG TABLET.DR PO SCH ×2 (09:01→17:16)
[2021-08-04] MEDS: CHOLECALCIFEROL 1,000 UNIT TABLET (VIT D3) PO SCH (09:01)
[2021-08-04] MEDS: MEMANTINE HCL 5 MG TABLET PO SCH ×2 (09:01→17:16)
[2021-08-04] MEDS: ESCITALOPRAM OXALATE (10 MG) 10 MG TABLET PO SCH (09:01)
[2021-08-04] MEDS: GALANTAMINE HYDROBROMIDE 4 MG TABLET PO SCH ×2 (09:02→17:16)
[2021-08-04] MEDS: MULTIVITAMINS,THERAGRAN 1 UDTAB TABLET PO SCH (09:02)
[2021-08-04] MEDS: LEVETIRACETAM (250 MG) 250 MG TABLET PO SCH (09:02)
[2021-08-04] MEDS: ASPIRIN EC 81 MG TABLET.DR PO SCH (09:02)
[2021-08-04] MEDS: clonazePAM 0.5 MG TABLET PO PRN (14:21)
--- NOTE | 2021-08-04 14:25 | NUR ---
PATIENT IS ANXIOUS AND RESTLESS. PRN KLONOPIN 0.25MG PO GIVEN ORDERED. WILL CONTINUE TO MONITOR FOR PATIENT'S SAFETY.
[2021-08-04 15:51] VITALS: BP 125/99
[2021-08-04] MEDS: SIMVASTATIN 20 MG TABLET PO SCH (17:16)
[2021-08-04 20:30] VITALS: BP 119/70
[2021-08-04] MEDS: QUETIAPINE FUMARATE 25 MG TABLET PO SCH (22:22)
[2021-08-04] MEDS: TEMAZEPAM 7.5 MG CAPSULE PO PRN (23:14)
--- NOTE | 2021-08-04 23:18 | NUR ---
RN NOTES: INSOMNIA PT. UNABLE TO SLEEP PRN RESTORIL 7.5 MG PO WILL CONTINUE TO MONITOR.
--- NOTE | 2021-08-05 06:40 | NUR ---
RN NOTE COVID 19 SPECIMEN COLLECTED AND DROPPED OFF AT LAB FOR DISCHARGE PLACEMENT.
[2021-08-05 08:00] VITALS: BP 137/78
--- NOTE | 2021-08-05 09:32 | NUR ---
Discharge Note: Patient will be discharged to [facility] Unit located at [address], [place] [address]; ([phone]). Patients Rekha ([phone]) will poultry picking machine tender pt at 1PM. Admissions at [facility], Nilam and Pawan stated pt is welcomed today. Patient appears to be alert and oriented x2. Patient denies suicidal or homicidal ideation. Patient denies visual/auditory hallucinations. Patient will follow up with primary doctor Dr. Johnathan Currie at the facility who will monitor and provide the psychotropic medications. Presents with euthymic mood and congruent affect.
[2021-08-05] MEDS: LEVETIRACETAM (250 MG) 250 MG TABLET PO SCH (09:42)
[2021-08-05] MEDS: GALANTAMINE HYDROBROMIDE 4 MG TABLET PO SCH (09:42)
[2021-08-05] MEDS: CHOLECALCIFEROL 1,000 UNIT TABLET (VIT D3) PO SCH (09:42)
[2021-08-05] MEDS: ASPIRIN EC 81 MG TABLET.DR PO SCH (09:42)
[2021-08-05] MEDS: DIVALPROEX SODIUM 250 MG TABLET.DR PO SCH (09:42)
[2021-08-05] MEDS: ESCITALOPRAM OXALATE (10 MG) 10 MG TABLET PO SCH (09:42)
[2021-08-05] MEDS: MEMANTINE HCL 5 MG TABLET PO SCH (09:42)
[2021-08-05] MEDS: MULTIVITAMINS,THERAGRAN 1 UDTAB TABLET PO SCH (09:42)
[2021-08-05] MEDS: Z GUARD REMEDY 2 OZ OINT TP SCH (09:43)
--- NOTE | 2021-08-05 13:25 | NUR ---
RN-NOTES PATIENT HAD A DISCHARGE ORDER FROM DR. MAYORGA/ JUNE PETERS ( PSYCHIATRIST) JUNE TREVINO ( SORT LINE) CLEARED PATIENT FOR DISCHARGE. PATIENT A/O X2 AMBULATORY STEADY GAIT. PATIENT DID NOT VERBALIZE SI/HI,DENIES VISUAL/AUDITORY HALLUCINATIONS AT THE TIME OF DISCHARGE. ALL DISCHARGE MEDICATIONS WAS REVIEWED WITH PATIENT'S ( JAMIA) WITH UNDERSTANDING. ALL DISCHARGE PAPERS INCLUDING RX AN DONE YELLOW RING WAS GIVEN TO JAMIA . PATIENT WAS DISCHARGE TO [facility]. PATIENT DID REFUSED FULL BODY ASSESSMENT PRIOR TO DISCHARGE. PATIENT WAS WHEELED DOWN THE LOBBY BY THE ACTIVITY STAFF FOR SAFETY. PATIENT LEFT THE UNIT IN STABLE CONDITION A/O X2,NO ACUTE DISTRESS NOTED.HAZARDOUS MATERIALS ANALYST BY JAMIA VIA PRIVATE CAR.
== END 2021-08-05 13:25 | DRG 881 ==
LOC: ER 16:42 → GPS 20:14
PROVIDERS: ADMIT Nurse Practitioner Psychiatric/Mental Health; ATTEND Nurse Practitioner Acute Care
DX: F32.9 Major depressive disorder, single episode, unspecified (principal); N17.0 Acute kidney failure with tubular necrosis; N18.9 Chronic kidney disease, unspecified; F02.81 Dementia in other diseases classified elsewhere, unspecified severity, with behavioral disturbance; F29 Unspecified psychosis not due to a substance or known physiological condition; G30.9 Alzheimer's disease, unspecified; F41.9 Anxiety disorder, unspecified; Z88.8 Allergy status to other drugs, medicaments and biological substances; G40.909 Epilepsy, unspecified, not intractable, without status epilepticus; Z91.048 Other nonmedicinal substance allergy status; E78.5 Hyperlipidemia, unspecified; Z79.82 Long term (current) use of aspirin; Z79.899 Other long term (current) drug therapy; Z73.6 Limitation of activities due to disability; M20.42 Other hammer toe(s) (acquired), left foot; M20.41 Other hammer toe(s) (acquired), right foot; S90.422A Blister (nonthermal), left great toe, initial encounter; X58.XXXA Exposure to other specified factors, initial encounter; Y92.9 Unspecified place or not applicable
CPT/HCPCS: 36415; 70450-TC; 80048-TC; 80053-TC; 80061-TC; 80076-TC; 80164-TC; 81001; 85025-TC; 87081-TC; 87086-TC; 97116-TC; 97530-TC; G0480; J1200; J1630; J2060